=== PATIENT | female | born 1980 | race Caucasian/White ===

== ENCOUNTER 2020-08-18 15:15 | Emergency (ER) | payer BC ==
--- NOTE | 2020-08-18 15:36 | EDM.PDOC ---
ED HPI GENERAL MEDICAL PROBLEM - General Chief Complaint: Upper Extremity Injury/Pain Stated Complaint: RIGHT ARM INJURY Time Seen by Provider: 08/18/20 15:27 Source of Information: Reports: Patient, RN Notes Reviewed History Limitations: Reports: No Limitations - History of Present Illness INITIAL COMMENTS - FREE TEXT/NARRATIVE: Patient is a 39-year-old female who presents to the ER for the evaluation of a right wrist injury. Patient was camping yesterday, when she was walking downhill and she started to slide, and fell and caught herself with her right wrist. States that pain is okay when it is at rest however seems to worsen greatly when she moves it in any direction at all. She is having no numbness or tingling distal to the injury. Patient is right-hand dominant. Patient denies any other sick-like symptoms, fever/chills, cough/shortness of breath, nausea/vomiting/diarrhea. There are no open sores or lesions. Patient did use some Tylenol and ibuprofen prior to coming to the ER, and states that she did have a tablet of OxyContin that she tried taking, this was a few hours ago however Right Wrist Pain Score (Numeric/FACES): 6 - Related Data Allergies Allergy/AdvReac Type Severity Reaction Status Date / Time No Known Allergies Allergy Verified 08/18/20 15:37 Home Meds: Home Meds Cholecalciferol (Vitamin D3) [Vitamin D3] 400 unit PO BID 08/18/20 [History] Past Medical History WEED [employer]INNER History: Reports: - Infectious Disease History Infectious Disease History: Reports: Chicken Pox - Past Surgical History HEENT Surgical History: Reports: Oral Surgery, Tonsillectomy GI Surgical History: Reports: Cholecystectomy Female Surgical History: Reports: Section Social & Family History - Family History Family Medical History: No Pertinent Family History - Tobacco Use Tobacco Use Status *Q: Current Every Day Tobacco User Years of Tobacco use: 20 Packs/Tins Daily: 0.5 - Caffeine Use Caffeine Use: Reports: Coffee, Energy Drinks, Soda - Recreational Drug Use Recreational Drug Use: No Review of Systems - Review of Systems Review Of Systems: Comprehensive ROS is negative, except as noted in HPI. ED EXAM, GENERAL - Physical Exam Exam: See Below Exam Limited By: No Limitations General Appearance: Alert, WD/WN, No Apparent Distress Respiratory/Chest: No Respiratory Distress, Lungs Clear, Normal Breath Sounds, No Accessory Muscle Use, Chest Non-Tender Cardiovascular: Normal Peripheral Pulses, Regular Rate, Rhythm, No Edema Peripheral Pulses: 2+: Radial (L), Radial (R) Extremities: Normal Inspection, Normal Capillary Refill, Limited Range of Motion (of right wrist d/t pain, has about 50% ROM in all direction) Neurological: Alert, Oriented, Normal Cognition, No Motor/Sensory Deficits Psychiatric: Normal Affect, Normal Mood Skin Exam: Warm, Dry, Intact, Normal Color, No Rash Course - Vital Signs Last Recorded V/S: Last Vital Signs Temp 97.8 F 08/18/20 15:22 Pulse 93 08/18/20 15:22 Resp 16 08/18/20 15:22 BP 177/100 H 08/18/20 15:22 Pulse Ox 97 08/18/20 15:22 - Orders/Labs/Meds Orders: Active Orders 24 hr Category Date Time Status [facility] [place] for Discharge [COMM] Routine Oth 08/18/20 16:27 Ordered - Re-Assessments/Exams Free Text/Narrative Re-Assessment/Exam: 08/18/20 15:36 Patient presents to the ER for her right wrist injury, go ahead and get x-rays for evaluation at this time. 08/18/20 16:27 Patient's x-rays have been obtained, and reviewed by myself and Dr. Diaz. No acute fracture or other bony injury, is apparent. Likely this is a sprain in nature. Patient will be placed in a cock-up splint for stabilization of the joint and prevent further injury. X-ray report has been completed, radiologist notes it is difficult to exclude fracture within the base of the radial styloid process, please correlate if patient is symptomatic to this region, again she was having pain to her right wrist, but has been given a cock-up wrist splint to the [facility] [place] closet for sta bilization of the joint and injury. This should not change care plan much, as the joint is immobilized. And she was directed to follow-up with her primary care or Ortho if it was not seeming to get much better. Departure - Departure Time of Disposition: 16:28 Disposition: Home, Self-Care 01 Condition: Good Clinical Impression: Unspecified sprain of right wrist, initial encounter - Discharge Information *PRESCRIPTION DRUG MONITORING PROGRAM REVIEWED*: No *COPY OF PRESCRIPTION DRUG MONITORING REPORT IN PATIENT FRANCISCO: No Instructions: Wrist Sprain Rehab-[facility] Referrals: Marquita Conway PA-C [Primary Care Provider] - Forms: ED Department Discharge Additional Instructions: You have been evaluated in the ED for your right wrist injury. Your x-ray demonstrated no obvious fracture or other bony abnormality of your right wrist. Likely you are suffering from a strain or sprain in nature. You have been provided with a brace, to prevent further injury and/or stabilize the injury you received today. Please use ice as tolerated to the affected area. Please try to elevate the affected area to relieve swelling. You may take Tylenol 500 mg or ibuprofen 600mg q6 hrs for pain relief. Please do so until you have a tolerable level of pain with activity. Do not exceed 4000mg Tylenol or 3200mg ibuprofen in a 24 hour time period. Please return to ED if your symptoms should change or worsen. Sepsis Event Note (ED) - Evaluation Sepsis Screening Result: No Definite Risk - Focused Exam Vital Signs: Vital Signs Temp Pulse Resp BP Pulse Ox 08/18/20 15:22 97.8 F 93 16 177/100 H 97 - My Orders Last 24 Hours: My Active Orders 08/18/20 16:27 DME for Discharge [COMM] Routine - Assessment/Plan Last 24 Hours: My Active Orders 08/18/20 16:27 DME for Discharge [COMM] Routine
--- NOTE | 2020-08-18 17:05 | CR ---
Right wrist: 4 views of the right wrist were obtained. Comparison: No previous study. There is slight cortical irregularity seen at the base of the radial styloid process. Difficult to completely exclude a small fracture involving the radial styloid process. Bony structures are otherwise unremarkable. No additional fracture or other abnormality is appreciated. Impression: 1. Difficult to exclude fracture within the base of the radial styloid process. Please correlate if patient is symptomatic to this region. 2. Right wrist study is otherwise unremarkable. Diagnostic code #3
== END 2020-08-18 16:40 | disposition home or self-care (01) ==
LOC: JD.ED 15:15
DX: S63.501A Unspecified sprain of right wrist, initial encounter (principal); W17.81XA Fall down embankment (hill), initial encounter; Y93.01 Activity, walking, marching and hiking
CPT/HCPCS: 73110-26-RT; 73110-RT; 99282; 99283-25

== ENCOUNTER 2022-10-27 08:00 | Inpatient (IN) | payer BC, OTHER ==
[~2022-10-27 08:00] MED LIST: Sodium Chloride 0.9% 10 ML Syringe FLUSH PRN; Sodium Chloride 0.9% 10 ML Syringe FLUSH SCH
[2022-10-27] MEDS ORDERED: Propofol 200 MG/20 ML SDV ONE (08:58)
[2022-10-27] MEDS ORDERED: Midazolam 1 MG/ML 2 ML SDV ONE (08:58)
[2022-10-27] MEDS ORDERED: Lidocaine 1% 2 ML ONE (08:59)
[2022-10-27] MEDS ORDERED: fentaNYL 100 MCG/2 ML SDV ONE ×2 (08:59→10:30)
[2022-10-27] MEDS ORDERED: Rocuronium 50 MG/5 ML Vial ONE ×2 (08:59→11:13)
[2022-10-27] MEDS ORDERED: Bupivacaine 0.5% 30 ML SDV ONE (08:59)
[2022-10-27] MEDS ORDERED: ceFAZolin 2 GM Vial ONE (09:04)
[2022-10-27] MEDS ORDERED: fentaNYL 100 MCG/2 ML SDV IVPUSH PRN (09:09)
[2022-10-27] MEDS ORDERED: Ondansetron 4 MG/2 ML SDV IVPUSH PRN ×2 (09:09→14:12)
[2022-10-27] MEDS ORDERED: HYDROmorphone 0.5 MG/0.5 ML Syringe IVPUSH PRN (09:09)
[2022-10-27] MEDS: Lactated Ringers 1,000 ML IV SCH ×2 (09:15→13:30)
[2022-10-27 09:23] LABS: BASOPHILS PERCENT AUTO 0.5 % (0.0-1.0); EOSINOPHILS ABSOLUTE AUTO 0.2 K/mm3 (0.0-0.4); HEMATOCRIT 44.1 % (37.0-47.0); IMMATURE GRAN ABSOLUTE AUTO 0.01 K/mm3 (0.00-0.05); IMMATURE GRAN PERCENT AUTO 0.1 % (0.0-0.4); LYMPHOCYTES ABSOLUTE AUTO 3.2 K/mm3 (1.0-4.8); LYMPHOCYTES PERCENT AUTO 36.9 % (24.0-44.0); MEAN CORPUSCULAR VOLUME 91.1 fl (83.0-99.0); MEAN PLATELET VOLUME 9.7 fl (9.4-12.3); MONOCYTES ABSOLUTE AUTO 0.7 K/mm3 (0.0-0.8); MONOCYTES PERCENT AUTO 8.6 % (0.0-8.0); NEUTROPHILS ABSOLUTE AUTO 4.5 K/mm3 (1.8-7.7); NEUTROPHILS PERCENT AUTO 51.9 % (41.0-71.0); PLATELET COUNT,PLT 395 K/mm3 (150-400); RED BLOOD CELL COUNT 4.84 M/mm3 (4.10-5.30); WHITE BLOOD CELL COUNT,WBC 8.62 K/mm3 (3.9-11.3)
[2022-10-27 09:41] LABS: ANION GAP 14.4 (5-15); BLOOD UREA NITROGEN,BUN 7 mg/dL (7-18); BUN/CREATININE RATIO 11.7 (14-18); CALCIUM 8.6 mg/dL (8.5-10.1); CARBON DIOXIDE,CO2 24 mEq/L (21-32); CHLORIDE,CL 105 mEq/L (98-107); CREATININE 0.6 mg/dL (0.55-1.02); ESTIMATED GFR 114 mL/min (>60); GLUCOSE RANDOM 93 mg/dL (70-99); POTASSIUM,K 4.4 mEq/L (3.5-5.1); SODIUM,NA 139 mEq/L (136-145)
[2022-10-27] MEDS ORDERED: Dexamethasone 4 MG/ML 5 ML MDV ONE (10:29)
[2022-10-27] MEDS ORDERED: ePHEDrine 50 MG/ML SDV ONE (10:30)
[2022-10-27] MEDS ORDERED: HYDROmorphone 0.5 MG/0.5 ML Syringe ONE (10:30)
[2022-10-27] MEDS ORDERED: Sugammadex Sodium 200 MG/2 ML VIAL ONE (10:34)
[2022-10-27] MEDS ORDERED: Lactated Ringers 1,000 ML IV ONE (11:15)
[2022-10-27] MEDS ORDERED: Ondansetron 4 MG/2 ML SDV ONE (11:36)
[2022-10-27] MEDS ORDERED: Ketorolac 30 MG/ML SDV ONE (11:59)
[2022-10-27] MEDS ORDERED: Scopolamine 1.5 MG Transdermal Patch TOP ONE (12:47)
[2022-10-27] MEDS ORDERED: Promethazine 25 MG/ML SDV IM ONE (14:00)
[2022-10-27] MEDS ORDERED: Lactated Ringers 1,000 ML IV SCH (14:12)
[2022-10-27] MEDS ORDERED: Acetaminophen/oxyCODONE 325-5 MG Tab PO PRN ×2 (14:12)
[2022-10-27] MEDS ORDERED: Ketorolac 15 MG/ML SDV IVPUSH SCH (18:30)
[2022-10-27] MEDS: Ketorolac 30 MG/ML SDV IVPUSH SCH (18:39)
[2022-10-27] MEDS ORDERED: Lisinopril 20 MG Tab PO SCH (21:00)
[2022-10-27] MEDS ORDERED: Methimazole 5 MG Tab PO SCH (21:00)
[2022-10-27] MEDS ORDERED: Metoprolol Succinate 25 MG Tab.ER PO SCH (21:00)
[2022-10-28] MEDS: Ketorolac 30 MG/ML SDV IVPUSH SCH ×2 (00:57→06:30)
[2022-10-28 06:33] LABS: MEAN CORPUSCULAR HEMOGLOBIN 30.5 pg (28.0-32.0); MEAN CORPUSCULAR HGB CONC 33.5 g/dl (32.0-36.0); MEAN CORPUSCULAR VOLUME 90.9 fl (83.0-99.0); MEAN PLATELET VOLUME 10.1 fl (9.4-12.3); PLATELET COUNT,PLT 368 K/mm3 (150-400); RED BLOOD CELL COUNT 4.07 M/mm3 (4.10-5.30); WHITE BLOOD CELL COUNT,WBC 16.09 K/mm3 (3.9-11.3)
[2022-10-28 07:21] LABS: HEMOGLOBIN 12.4 gm/dl (12.0-16.0)
== END 2022-10-28 10:00 | disposition home or self-care (01) | DRG 519 ==
LOC: JD.OB 08:33
PROVIDERS: ADMIT Obstetrics & Gynecology; ATTEND Obstetrics & Gynecology
PROC: 0UT90ZZ Resection of Uterus, Open Approach (ICD-10-PCS; principal; 2022-10-27)
PROC: 0UT70ZZ Resection of Bilateral Fallopian Tubes, Open Approach (ICD-10-PCS; 2022-10-27)
PROC: 0T9B70Z Drainage of Bladder with Drainage Device, Via Natural or Artificial Opening (ICD-10-PCS; 2022-10-27)
DX: D25.9 Leiomyoma of uterus, unspecified (principal); I10 Essential (primary) hypertension; D26.0 Other benign neoplasm of cervix uteri; D28.2 Benign neoplasm of uterine tubes and ligaments; F17.210 Nicotine dependence, cigarettes, uncomplicated; Z90.49 Acquired absence of other specified parts of digestive tract; Z98.890 Other specified postprocedural states; Z79.899 Other long term (current) drug therapy
CPT/HCPCS: 00840; 36415; 80048; 81025; 85025; 85027; 86850; 86900; 86901; A9270-GY; J0690; J1100; J1170; J1885; J2250; J2405; J2550; J2704; J3010; J3490; J7120